=== PATIENT | female | born 1975 | race Caucasian/White ===

== ENCOUNTER → 2018-02-16 | Outpatient (CLI) | payer BC | LOC: BMCIMAGING 15:05 → EDSTATUS 15:07 → BMCIMAGING 15:08 | PROVIDERS: ATTEND Orthopaedic Surgery | DX: M25.561 Pain in right knee (principal) ==

== ENCOUNTER → 2018-07-25 | Outpatient (CLI) | payer BC | LOC: FIMAGING 08:54 | PROVIDERS: ATTEND Orthopaedic Surgery | DX: Z47.89 Encounter for other orthopedic aftercare (principal); M76.51 Patellar tendinitis, right knee ==

== ENCOUNTER → 2019-02-03 | Outpatient (CLI) | payer BC, OTHER ==
[~2019-02-03] MED LIST: BUPIVACAINE 0.25% 30 ML SDV ONE; LIDOCAINE 1% 300 MG/30 ML SDV ONE
== END ==
LOC: FIMAGING 13:03
PROVIDERS: ATTEND Orthopaedic Surgery
PROC: 3E023GC Introduction of Other Therapeutic Substance into Muscle, Percutaneous Approach (ICD-10-PCS; principal; 2019-02-03)
DX: M25.561 Pain in right knee (principal)